=== PATIENT | male | born 1990 | race Caucasian/White ===

== ENCOUNTER 2022-08-15 08:10 | Emergency (ER) | payer SELFPAY ==
[2022-08-15] MEDS ORDERED: Bupivacaine PF 0.5% 30 ML VIAL ONE (09:04)
[2022-08-15] MEDS ORDERED: HYDROcodone/Acetaminophen 5/325 mg Tablet ONE (09:12)
== END 2022-08-15 09:15 | disposition home or self-care (01) ==
LOC: CSHERS 08:10
DX: K02.9 Dental caries, unspecified (principal); G40.909 Epilepsy, unspecified, not intractable, without status epilepticus; F17.210 Nicotine dependence, cigarettes, uncomplicated
CPT/HCPCS: 64400; S0020

== ENCOUNTER 2022-10-06 14:11 | Emergency (ER) | payer SELFPAY ==
[2022-10-06] MEDS ORDERED: Bupivacaine PF 0.5% 30 ML VIAL ONE (14:41)
== END 2022-10-06 15:17 | disposition home or self-care (01) ==
LOC: CSHERS 14:11
DX: L02.416 Cutaneous abscess of left lower limb (principal); F17.210 Nicotine dependence, cigarettes, uncomplicated
CPT/HCPCS: 10060; S0020